=== PATIENT | female | born 1945 | race Caucasian/White ===

== ENCOUNTER → 2019-09-14 15:54 | Outpatient (CLI) | payer MEDICARE, OTHER, SELFPAY ==
[2019-09-11 08:38] VITALS: BMI 27.0
--- NOTE | 2019-09-14 16:01 | CT_ITS ---
History: Fall, humeral fracture. Injury. Examination and technique: CT of the left shoulder without IV contrast. Axial images obtained with multiplanar reformats and 3-D reconstructed images provided. Dose optimization was utilized. No comparisons. FINDINGS: Acute proximal humeral fracture, extending through the anatomic neck, and through the bases of the greater and lesser tuberosities. The shaft is mildly impacted and angulated laterally. The tuberosity fractures are minimally displaced. The humeral head maintains articulation with the bony glenoid. No other fracture is evident. Acromioclavicular alignment maintained. Moderate underlying degenerative changes, and calcific tendinopathy of the distal rotator cuff tendons. Left shoulder joint effusion. No hematoma or acute finding in the musculature. Implanted cardiac device left chest partially visible. CT/Extremity Upper without Contra IMPRESSION: Acute mildly displaced proximal humeral fracture. Electronically Signed: Maxx Song, at 4:28 EST Tel , Service support ,
--- NOTE | 2019-09-14 16:16 | CT_ITS ---
History: Fall, humeral fracture. Injury. Examination and technique: CT of the left shoulder without IV contrast. Axial images obtained with multiplanar reformats and 3-D reconstructed images provided. Dose optimization was utilized. No comparisons. FINDINGS: Acute proximal humeral fracture, extending through the anatomic neck, and through the bases of the greater and lesser tuberosities. The shaft is mildly impacted and angulated laterally. The tuberosity fractures are minimally displaced. The humeral head maintains articulation with the bony glenoid. No other fracture is evident. Acromioclavicular alignment maintained. Moderate underlying degenerative changes, and calcific tendinopathy of the distal rotator cuff tendons. Left shoulder joint effusion. No hematoma or acute finding in the musculature. Implanted cardiac device left chest partially visible. CT/Coronals Sag Multi Obl 3-D Rec IMPRESSION: Acute mildly displaced proximal humeral fracture. Electronically Signed: Maxx Song, at 4:28 EST Tel , Service support ,
== END ==
PROVIDERS: Family Provider Family Medicine; PCP Family Medicine; Referring Provider Orthopaedic Surgery; Visit Provider Orthopaedic Surgery
DX: S42.209A Unspecified fracture of upper end of unspecified humerus, initial encounter for closed fracture (principal); W19.XXXA Unspecified fall, initial encounter
CPT/HCPCS: 73200; 76377

== ENCOUNTER → 2019-09-18 12:40 | Outpatient (CLI) | payer MEDICARE, OTHER, SELFPAY ==
[2019-09-18 12:39] VITALS: BMI 27.0
--- NOTE | 2019-09-18 12:41 | RAD_ITS ---
STUDY: X-RAY - LEFT SHOULDER REASON FOR EXAM: Fracture. TECHNIQUE: 4 view(s) of the shoulder. COMPARISON: CT images 09/14/2019. FINDINGS: There is inferior subluxation of the humeral head. There is acromioclavicular arthrosis. Normal acromion. There is a mildly impacted fracture of the surgical neck of the humerus. There is calcific tendinitis. Normal visualized pulmonary apex. RAD/Shoulder min 2 Views IMPRESSION: Humeral neck fracture with inferior subluxation of the humeral head. Calcific tendinitis. Acromioclavicular arthrosis. Electronically Signed: Patrick Albarado MD at 13:55 EST Tel , Service support ,
== END ==
PROVIDERS: Family Provider Family Medicine; PCP Family Medicine; Referring Provider Orthopaedic Surgery; Visit Provider Orthopaedic Surgery
DX: S42.302A Unspecified fracture of shaft of humerus, left arm, initial encounter for closed fracture (principal); X58.XXXA Exposure to other specified factors, initial encounter; M19.012 Primary osteoarthritis, left shoulder; M75.32 Calcific tendinitis of left shoulder
CPT/HCPCS: 73030

== ENCOUNTER → 2019-09-24 10:21 | Outpatient (CLI) | payer MEDICARE, OTHER, SELFPAY ==
[2019-09-24 10:20] VITALS: BMI 27.0
--- NOTE | 2019-09-24 10:22 | RAD_ITS ---
STUDY: X-RAY - LEFT SHOULDER REASON FOR EXAM: Female, 74 years old. Fracture TECHNIQUE: 2 view(s) of the shoulder. COMPARISON: September 18, 2019 FINDINGS: There is caudal migration of the humeral head consistent with joint effusion. There is degenerative arthrosis of the acromioclavicular joint without inferior osseous spur formation. Normal acromion. There is demineralization of the humerus and visualized osseous structures. There is stable fracture of the surgical neck of the proximal humerus. There is a stable pacemaker device on the left. Normal visualized pulmonary apex. RAD/Shoulder min 2 Views IMPRESSION: Stable proximal humerus fracture. Electronically Signed: Freddie Zapata MD at 20:54 EST , Service support ,
== END ==
PROVIDERS: Family Provider Family Medicine; PCP Family Medicine; Referring Provider Physician Assistant; Visit Provider Physician Assistant
DX: S42.202A Unspecified fracture of upper end of left humerus, initial encounter for closed fracture (principal)
CPT/HCPCS: 73030

== ENCOUNTER → 2019-10-08 10:42 | Outpatient (CLI) | payer MEDICARE, OTHER, SELFPAY ==
[2019-10-08 10:37] VITALS: BMI 27.0
--- NOTE | 2019-10-08 10:45 | RAD_ITS ---
STUDY: X-RAY - LEFT SHOULDER REASON FOR EXAM: Follow-up fracture. TECHNIQUE: 3 view(s) of the shoulder. COMPARISON: Radiographs 02/22/2019. FINDINGS: There is inferior subluxation of the glenohumeral joint without interval change. There is acromioclavicular arthrosis. Normal acromion. There is a mildly impacted surgical neck fracture with early callus formation. There is calcific tendinitis as on the prior study. Normal visualized pulmonary apex. RAD/Shoulder min 2 Views IMPRESSION: Mildly impacted surgical neck fracture with early callus formation. Acromioclavicular arthrosis. Calcific tendinitis. Electronically Signed: Patrick Albarado MD at 16:00 EST Tel , Service support ,
== END ==
PROVIDERS: Family Provider Family Medicine; PCP Family Medicine; Referring Provider Physician Assistant; Visit Provider Physician Assistant
DX: S42.202A Unspecified fracture of upper end of left humerus, initial encounter for closed fracture (principal)
CPT/HCPCS: 73030

== ENCOUNTER → 2019-11-05 10:36 | Outpatient (CLI) | payer MEDICARE, OTHER, SELFPAY ==
[2019-11-05 10:22] VITALS: BMI 27.0
--- NOTE | 2019-11-05 10:37 | RAD_ITS ---
HISTORY: FRACTURE ADDITIONAL HISTORY: None provided. TECHNIQUE: Left shoulder 3 views Number of images including paperwork: 3 COMPARISON: 10/08/2019 FINDINGS: BONES: Some interval callus formation is noted about the mildly impacted fracture at the left proximal humerus. Fracture alignment is unchanged. Fracture line partially visible. JOINTS: No subluxation. Mild to moderate degenerative changes of the acromioclavicular and glenohumeral joints. SOFT TISSUES: No distinct foreign body. Faint calcification noted at the left rotator cuff insertion, unchanged and compatible with calcific tendinitis. Left sided pacemaker generator. Pacemaker leads partially visualized. RAD/Shoulder min 2 Views IMPRESSION: Left proximal humerus fracture with some interval healing. at 2256 Reported and signed by: Nimco Frye MD Electronically Signed: Nimco Frye MD at 22:56 EST Tel , Service support ,
== END ==
PROVIDERS: PCP Family Medicine; Referring Provider Physician Assistant; Visit Provider Physician Assistant
DX: S42.202A Unspecified fracture of upper end of left humerus, initial encounter for closed fracture (principal)
CPT/HCPCS: 73030

== ENCOUNTER 2020-09-22 10:19 | Inpatient (IN) | payer MEDICARE, OTHER, SELFPAY ==
[2019-11-05 10:22] VITALS: BMI 27.0
[2020-09-22] VITALS (10 sets, daily range): BP systolic 116–176; BP diastolic 62–90; PULSE 60–84; RESP 12–18; TEMP 36.4–36.9; O2SAT 98–100; BMI 29.6; BMI 28.6; BMI 28.7
--- NOTE | 2020-09-22 10:27 | NURSING ---
NO OLD EKGS
--- NOTE | 2020-09-22 11:03 | EKG12_ITS ---
Test Reason : CP Blood Pressure : / mmHG Vent. Rate : 078 BPM Atrial Rate : 078 BPM P-R Int : 206 ms QRS Dur : 180 ms QT Int : 450 ms P-R-T Axes : 000 -84 105 degrees QTc Int : 513 ms Electronic Ventricular Pacemaker Abnormal ECG Confirmed by PEARL METZ, PATRICA ([id number]), editorial writer ALISA VASQUEZ ([id number]) on 09/24/2020 12:54:16 PM Referred By: SALOMÓN Confirmed By:PATRICA KANG MD
--- NOTE | 2020-09-22 11:03 | RAD_ITS ---
STUDY: X-RAY CHEST REASON FOR EXAM: Female, 75 years old. PT C/O CHEST PRESSURE THAT HAS BEEN INTERMITTENT FOR SEVERAL DAYS. PT REPORTS IT BECOMES WORSE WITH HER ANXIETY. TECHNIQUE: Single AP portable view of the chest. COMPARISON: None. FINDINGS: EKG electrodes are seen. The lungs are clear and expanded. There is no demonstrated pleural abnormality. Normal size heart. A left-sided dual-chamber pacemaker is seen. Normal mediastinum and yudi. Normal visualized pulmonary arteries. Normal visualized aortic arch and descending thoracic aorta. There are mild degenerative changes of the visualized thoracic spine. Healed fracture of the surgical neck of the proximal left humerus. There is no demonstrated abnormality of the visualized soft tissue structures of the upper abdomen. RAD/Chest 1 View (Portable) IMPRESSION: No acute abnormality is seen. Electronically Signed: Cayden Alford, at 12:26 EST , Service support ,
--- NOTE | 2020-09-22 11:05 | ED.VIS.CHEST ---
History of Present Illness Chief Complaint: Chest Pain Informant: Patient Onset: Days - 4 Activity at onset: Rest Timing: Intermittent, Lasts - several - 30 minutes Quality: Heaviness Location: Substernal - and radiating into left periscapular area Current Severity: Gone Maximum Severity: Moderate Worsened By: Nothing. Not Worsened By: Breathing, Coughing Relieved By: Nothing Associated Symptoms: Cough. Negative for: Nausea, Vomiting, Diaphoresis, Dyspnea, Fever, Lightheadedness, Acid Reflux, Palpitations Narrative: Patient has been feeling weak, having chest pain off-and-on for the last several days, which is unusual for her. No history of heart disease that she knows of. No known contacts with COVID-19 infected persons. - Past Medical History (1) HTN (hypertension) Status: Chronic (2) GERD (gastroesophageal reflux disease) Status: Chronic (3) History of cardiac pacemaker Status: Chronic Past Medical History - Allergies and Home Meds Allergies/Adverse Reactions: Allergies amoxicillin Allergy (Intermediate, Verified 09/22/20 10:20) hives and vaginal itching. Primary Care Physician: Fredrick Alejandro MD [Primary Care Provider] - Doctors: cardiology at [facility] Surgical History: pacemaker implantation Smoking Status: Never smoker Review of Systems General: Reports: Chills. Denies: Fever, Sweats Eyes: Denies: Visual changes - bilaterally, Diplopia ENT: Denies: Bilateral ear pain, Rhinorrhea, Sore throat Cardiovascular: Reports: Chest pain. Denies: Palpitations Respiratory: Reports: Cough - mild. Denies: Dyspnea, Sputum, Dyspnea on exertion Gastrointestinal: Denies: Abdominal pain, Nausea, Vomiting, Diarrhea, Melena, Hematochezia Genitourinary: Denies: Dysuria, Hematuria, Frequency Musculoskeletal: Reports: Myalgias - intermittently, Back pain - when chest hurts. Denies: Neck pain, Swelling, Extremity Pain Skin: Denies: Rash, Wounds Neurological: Denies: Headache, Weakness, Numbness Physical Exam Vital Signs/Narrative: Vital Signs Temp Pulse Resp BP Pulse Ox 09/22/20 10:20 98.4 F 69 17 176/78 H 100 Inital Vital Signs reviewed: Yes General: Well nourished, Well developed, No Acute Distress Head: Normocephalic, Atraumatic Eyes: Perrl, EOMI ENT: Moist mucous membranes, No rhinorrhea Neck: Supple, Nontender, No lymphadenopathy, No JVD Cardiovascular: Regular rate, Regular rhythm, No murmurs. Negative for: Tachycardia, Bradycardia Respiratory: No distress, CTA bilaterally, Chest nontender Abdomen: Soft, Nontender, Nondistended, Normal bowel sounds Back: Nontender, Normal Inspection Extremities: Nontender, No edema. Negative for: Calf Tenderness Skin: Normal color, No rash, No Trauma Neurological: Alert, Oriented x3, Cranial nerves II-XII grossly intact, Normal Strength, Normal Sensation Psychological: Normal affect, Normal Mood Diagnostic/Tx/Re-eval Chest X-Ray - ED: 1 View, Read by ED Physician, No Acute Disease, No Infiltrates Laboratory Tests 09/22/20 09/22/20 Range/Units 10:25 10:25 WBC 3.0 L (4.4-11.0) K/mm3 RBC 5.24 (4.2-5.4) M/mm3 Hgb 15.3 H (12.0-15.0) g/dL Hct 44.9 (37-47) % MCV 85.7 (81-99) fL MCH 29.2 (27.0-32.0) pg MCHC 34.1 (32-36) g/dL RDW Std Deviation 39.7 (35.1-43.9) fl RDW Coeff of Tyron 12.8 (11.6-14.6) % Plt Count 202 (150-450) K/mm3 MPV 9.4 (6.2-12.0) fl Immature Gran % (Auto) 0.300 (0.0-0.9) % Neut % (Auto) 48.0 (47-70) % Lymph % (Auto) 35.9 (19-41) % [place] % (Auto) 14.1 H (0-10) % Eos % (Auto) 0.7 (0-5) % Baso % (Auto) 1.0 (0-1) % Absolute Neuts (auto) 1.5 L (2.0-7.7) X10^3/uL Absolute Lymphs (auto) 1.09 (0.83-4.51) X10^3/uL Nucleated RBC % 0 (0-5) % Sodium 136 (136-145) mmol/L Potassium 2.7 L* (3.5-5.1) mmol/L Chloride 98 (98-107) mmol/L Carbon Dioxide 33.0 H (21.0-32.0) mmol/L Anion Gap 5 (5-15) BUN 11 (7-18) mg/dL Creatinine 0.88 (0.55-1.02) mg/dL Estim Creat Clear Calc 40.90 ml/min Est GFR (MDRD) Af Amer 81 (>60) mL/min Est GFR (MDRD) Non-Af 67 (>60) mL/min BUN/Creatinine Ratio 12.5 (10-20) RATIO Glucose 108 H (74-106) mg/dL Calcium 9.5 (8.5-10.1) mg/dL Troponin I < 0.015 (<0.045) ng/mL - Rhythm Strip Rhythm Strip: paced Rate: 78 Ectopy: None - EKG Initial EKG Interpretation: No Acute Injury Pattern, Paced - AV sequential pace and capture Prior: No Prior - Medical Decision Making Patient's Covid test returned positive confirming her URI symptoms has due to Covid. Her EKG shows normal pacing capture, her troponin is negative, which is very low potassium level. Given her chest pain and Covid, I did a D-dimer which returned within normal limits when corrected for her age, making acute pulmonary embolus extremely unlikely given a low pretest probability for the history. Given her very low potassium, I did start her on treatment and plan is admission to observation for replacement and further evaluation. ED Disposition - Plan for ED Patient: Disposition: Acute Care [facility] Diagnosis: Chest pain, COVID-19, Hypokalemia Referrals: Fredrick Alejandro MD [Primary Care Provider] -
[2020-09-22] MEDS: Aspirin 81 MG TAB.CHEW 324 MG PO (11:23)
[2020-09-22 11:25] LABS: Absolute Lymphocyte Count 1.09 X10^3/uL (0.83-4.51); Absolute Neutrophil Count 1.5 X10^3/uL (2.0-7.7); Basophil# 0.03 X10^3/uL; Eosinophil# 0.02 X10^3/uL; Eosinophils% 0.7 % (0-5); Hematocrit 44.9 % (37-47); Hemoglobin 15.3 g/dL (12.0-15.0); Lymphocyte # 1.09 X10^3/ul (4.0); Lymphocyte % 35.9 % (19-41); Mean Corp Hgb Conc 34.1 g/dL (32-36); Mean Corpuscular Hgb 29.2 pg (27.0-32.0); Mean Corpuscular Volume 85.7 fL (81-99); Mean Platelet Vol. 9.4 fl (6.2-12.0); Monocyte# 0.43 X10^3/uL; Monocyte% 14.1 % (0-10); NRBC Flagged by Analyzer 0 % (0-5); Neutrophil # 1.46 X10^3/uL (2.7-7.7); Platelet Count 202 K/mm3 (150-450); RBC Distribution Width CV 12.8 % (11.6-14.6); RBC Distribution Width SD 39.7 fl (35.1-43.9); Red Blood Count 5.24 M/mm3 (4.2-5.4)
[2020-09-22 11:45] LABS: Anion Gap 5 (5-15); BUN 11 mg/dL (7-18); BUN/Creat Ratio 12.5 RATIO (10-20); Calcium,Total 9.5 mg/dL (8.5-10.1); Chloride 98 mmol/L (98-107); Creatinine, Serum 0.88 mg/dL (0.55-1.02); EST Glomerular Filtration Rate 67 mL/min (>60); Est Glom Filt Rate - Afr Amer 81 mL/min (>60); Glucose 108 mg/dL (74-106); Potassium 2.7 mmol/L (3.5-5.1); Sodium Level 136 mmol/L (136-145)
[2020-09-22 13:07] LABS: D-Dimer Quantitative (DVT/PE) 0.56 FEU/ug/m (0.27-0.49)
--- NOTE | 2020-09-22 13:49 | HP.PCM_ITS ---
Problem List (1) HTN (hypertension) Status: Chronic Qualifiers: Hypertension type: essential hypertension Qualified Code(s): I10 - Essential (primary) hypertension (2) GERD (gastroesophageal reflux disease) Status: Chronic Qualifiers: Esophagitis presence: esophagitis presence not specified Qualified Code(s): K21.9 - Gastro-esophageal reflux disease without esophagitis (3) History of cardiac pacemaker Status: Chronic (4) Chest pain Status: Acute Qualifiers: Chest pain type: unspecified Qualified Code(s): R07.9 - Chest pain, unspecified (5) COVID-19 Status: Acute (6) Hypokalemia Status: Acute (7) Hyperlipidemia Status: Chronic Qualifiers: Hyperlipidemia type: unspecified Qualified Code(s): E78.5 - Hyperlipidemia, unspecified History of Present Illness Date of Admission: 09/22/20 Chief Complaint: Chest pain - 2 days The patient is a 75 year old F with past medical history of hypertension, status post pacemaker who comes in with a 2-day history of substernal chest pain, that started at home, at rest radiates into her left scapular region this was associated with diaphoresis dizziness or palpitations. She denied any fever or runny nose or shortness of breath. Denied any history of heart disease. She had her pacemaker placed in [facility] 10 years ago. She admitted to some clear runny nose, occasional tickling in her throat with cough. Denied any fever or shortness of breath. She denied any sick contact. Vitals in the ED showed temperature of 90 8.4F, heart rate 69, blood pressure 176/78, respiratory 17, SPO2 100% on room air. WBC count was 3.0, hemoglobin 15.3, platelet count 202, D-dimer 0.56, sodium 136, potassium 2.7, chloride 98, bicarbonate 33, BUN 11, creatinine 0.88, glucose 108, magnesium 2.2, LFTs were unremarkable, troponins were negative, procalcitonin was 0.01. Her admitting chest x-ray showed no acute abnormality. EKG showed a paced rhythm. Past Medical History Past Medical History (Chronic Problems): Chronic Problems (Last Updated 09/11/19 @ 08:49 by Yesenia Mcintyre) HTN (hypertension) (Chronic) GERD (gastroesophageal reflux disease) (Chronic) History of cardiac pacemaker (Chronic) Hyperlipidemia (Chronic) Medical History: Medical History (Last Updated 09/11/19 @ 08:49 by Yesenia Mcintyre) Borderline diabetes R73.03 HTN (hypertension) I10 Hx of cardiac pacemaker Z95.0 Allergies amoxicillin Allergy (Intermediate, Verified 09/22/20 10:20) hives and vaginal itching. Home Medications: Ambulatory Orders Medication Instructions Recorded aspirin 81 mg chewable tablet 81 mg PO DAILY 09/11/19 hydralazine 25 mg tablet 25 mg PO BID #90 tab 09/11/19 hydrochlorothiazide 25 mg tablet 25 mg PO DAILY #30 tab 09/11/19 meloxicam 15 mg tablet 15 mg PO DAILY PRN PRN #30 tab 09/11/19 simvastatin 20 mg tablet 20 mg PO DAILY #30 tab 09/11/19 Amlodipine [Norvasc] 5 mg PO DAILY 09/22/20 Cholecalciferol (Vitamin D3) 1,000 unit PO DAILY 09/22/20 [Vitamin D3] Surgical History: cholecystectomy, hysterectomy, pacemaker implantation Psychiatric History: No pertinent psych hx IS MANAGER History: No pertinent IS MANAGER history Lives: Alone Smoking Status: Former smoker Tobacco Use: Non-smoker Alcohol: None Drugs: None - *Family History Maternal History Items: Heart Disease Paternal History Items: Unknown Review of Systems Constitutional: Reports: Weakness, Fatigue. Denies: Anorexia, Chills, Fever, Malaise, Weight Change Eyes: Denies: Blurred vision, Cataracts, Conjunctivae Inflammation, Pain, Redness, Vision Change HEENT: Denies: Difficulty Hearing, Difficulty Swallowing, Head Aches, Hearing Changes, Sinus Congestion, Sinus Drainage Cardiovascular: Reports: Chest Pain. Denies: Claudication, Orthopnea, Palpitations, Paroxysmal Noc. Dyspnea Respiratory: Denies: Cough, Hemoptysis, Shortness of Breath, Shortness of breath at rest, Shortness of breath upon exertion, Sputum production Gastrointestinal: Denies: Abdominal Pain, Constipation, Nausea, Vomiting Genitourinary: Denies: Dysuria Musculoskeletal: Denies: Joint Pain, Joint stiffness, Joint swelling, Joint Tenderness Skin: Denies: Pruritis, Rash, Wounds Neurological: Denies: Difficulty swallowing, Focal weakness, Numbness, Tingling Psychiatric: Denies: Anxiety, Depression, Homicidal Ideations, Suicidal Ideations Hematologic/ Lymphatic: Denies: Easy Bruising, Easy Bleeding VTE Information - Inpt Only VTE Present on Admission: No VTE Pharm Prophylaxis ordered?: Yes Patient Problems: Active and Suspected Problems (Last Updated 09/11/19 @ 08:49 by Yesenia Mcintyre) Chest pain (Acute) COVID-19 (Acute) Hypokalemia (Acute) - Physical Exam Vitals/I&O's: Vital Signs Temp Pulse Resp BP Pulse Ox 98.4 F 84 15 142/64 H 100 09/22/20 10:20 09/22/20 13:36 09/22/20 13:36 09/22/20 13:36 09/22/20 13:36 Oxygen Delivery Method Room Air Weight: 68.9 kg Body Mass Index (BMI) 29.6 General: Alert, Oriented x3, Cooperative, No apparent distress - Not on oxygen HEENT: Atraumatic, PERRLA, EOMI, Normocephalic Oral: Moist Mucosa Neck: Supple Lungs: Normal air movement Cardiovascular: Regular rate, Regular Rhythm, Normal S1, No murmurs Abdomen: Bowel Sounds Present, Soft, Non Tender Extremities: No edema Skin: No rashes Musculoskeletal: No Tenderness to Palpation of Joints or Extremities Lymphatic: No Cervical, Supraclavicular, or Inguinal Adenopathy Neurological: Cranial nerves II-XII grossly intact, Neuro grossly intact Psych/Mental Status: Normal Affect, Appropriate Microbiology Past 72 Hours 09/22/20 11:25 Mucosa - Nose SARS-CoV-2 Antigen (Rapid) - Final SARS-CoV-2 (COVID 19) Laboratory Results 09/22/20 10:25: WBC 3.0 L, RBC 5.24, Hgb 15.3 H, Hct 44.9, MCV 85.7, MCH 29.2, MCHC 34.1, RDW Std Deviation 39.7, RDW Coeff of Tyron 12.8, Plt Count 202, MPV 9.4, Immature Gran % (Auto) 0.300, Neut % (Auto) 48.0, Lymph % (Auto) 35.9, [place] % (Auto) 14.1 H, Eos % (Auto) 0.7, Baso % (Auto) 1.0, Absolute Neuts (auto) 1.5 L, Absolute Lymphs (auto) 1.09, Nucleated RBC % 0 09/22/20 10:25: Sodium 136, Potassium 2.7 L*, Chloride 98, Carbon Dioxide 33.0 H , Anion Gap 5, BUN 11, Creatinine 0.88, Estim Creat Clear Calc 40.90, Est GFR (MDRD) Af Amer 81, Est GFR (MDRD) Non-Af 67, BUN/Creatinine Ratio 12.5, Glucose 108 H, Calcium 9.5, Troponin I < 0.015 09/22/20 10:25: D-Dimer Quant (PE/DVT) 0.56 H* Assessment/Plan All Active Problems (Last Updated 09/11/19 @ 08:49 by Yesenia Mcintyre) Chest pain (Acute) COVID-19 (Acute) Hypokalemia (Acute) 1. Chest pain, typical, in a patient with risk factors No history of underlying previous CAD. History of pacemaker EKG showed no acute ST-T changes, showed paced rhythm. Troponins are negative Would hold off on ordering stress test in the light of possible COVID-19 infection Patient will likely need outpatient follow-up Continue on aspirin 81 mg p.o. daily, atorvastatin 2. Acute COVID-19 infection with a positive COVID-19 rapid antigen test Patient has minimal symptoms of a clear runny nose, occasional cough with sensation of fluid dripping behind her throat Procalcitonin 0.01. Denied any sick contacts Will order COVID-19 PCR to allow definite risk stratification especially for cardiac testing if need be 3. Hypokalemia secondary to hydrochlorothiazide use Will replace with oral potassium Hold hydrochlorothiazide Recheck in a.m. 4. Hypertension/hyperlipidemia, continue on amlodipine, hydralazine, simvastatin 5. DVT prophylaxis -Lovenox BID OBSV E&M: [id number] Initial observation care L3
--- NOTE | 2020-09-22 14:03 | NURSING ---
PCU CP, POSITIVE COVID PAINTSIL
[2020-09-22 14:30] LABS: AST(SGOT) 28 U/L (15-37); Alanine Aminotransfer ALT/SGPT 39 U/L (13-56); Albumin, Serum 4.2 g/dL (3.2-5.0); Alkaline Phosphatase 74 U/L (45-117); Globulin 4.2 g/dL (2.2-4.2); Magnesium 2.2 mg/dL (1.6-2.6); Protein, Total 8.4 g/dL (6.4-8.2)
--- NOTE | 2020-09-22 15:22 | EKG12_ITS ---
Test Reason : Blood Pressure : / mmHG Vent. Rate : 061 BPM Atrial Rate : 062 BPM P-R Int : 206 ms QRS Dur : 178 ms QT Int : 494 ms P-R-T Axes : 000 -80 100 degrees QTc Int : 497 ms AV dual-paced rhythm Abnormal ECG Confirmed by PEARL METZ, PATRICA ([id number]), book or script editor ALISA VASQUEZ ([id number]) on 09/24/2020 1:22:43 PM Referred By: GUERITA Confirmed By:PATRICA KANG MD
[2020-09-22 16:04] LABS: Procalcitonin < 0.01 ng/mL (0.00-0.09)
[2020-09-22] MEDS: dexAMETHasone 4 MG Tablet 6 MG PO (18:16)
[2020-09-22] MEDS: hydrALAZINE 25 MG Tablet PO (21:00)
[2020-09-22] MEDS: Enoxaparin 30 MG/0.3 ML Syringe SC (21:01)
[2020-09-22 23:12] LABS: Probe Check PASS; Specimen Processing Control PASS
[2020-09-23] VITALS (11 sets, daily range): BP systolic 125–135; BP diastolic 56–64; PULSE 60–65; RESP 17–18; TEMP 36.4–36.8; O2SAT 94–100
[2020-09-23 07:24] LABS: Absolute Lymphocyte Count 0.65 X10^3/uL (0.83-4.51); Absolute Neutrophil Count 2.4 X10^3/uL (2.0-7.7); Hematocrit 41.2 % (37-47); Hemoglobin 13.8 g/dL (12.0-15.0); Lymphocyte # 0.65 X10^3/ul (4.0); Mean Corp Hgb Conc 33.5 g/dL (32-36); Mean Corpuscular Hgb 28.6 pg (27.0-32.0); Mean Corpuscular Volume 85.3 fL (81-99); Mean Platelet Vol. 9.6 fl (6.2-12.0); Monocyte% 3.2 % (0-10); NRBC Flagged by Analyzer 0 % (0-5); Neutrophil # 2.35 X10^3/uL (2.7-7.7); Neutrophil % 75.8 % (47-70); Platelet Count 195 K/mm3 (150-450); RBC Distribution Width CV 12.6 % (11.6-14.6); Red Blood Count 4.83 M/mm3 (4.2-5.4); White Blood Count 3.1 K/mm3 (4.4-11.0)
[2020-09-23 08:00] LABS: ALB/GLOB Ratio 1.1 RATIO (0.9-2.4); AST(SGOT) 22 U/L (15-37); Alanine Aminotransfer ALT/SGPT 36 U/L (13-56); Albumin, Serum 3.7 g/dL (3.2-5.0); Alkaline Phosphatase 62 U/L (45-117); Anion Gap 7 (5-15); BUN 18 mg/dL (7-18); BUN/Creat Ratio 22.8 RATIO (10-20); Calcium,Total 9.2 mg/dL (8.5-10.1); Chloride 102 mmol/L (98-107); Creatinine, Serum 0.79 mg/dL (0.55-1.02); EST Glomerular Filtration Rate 76 mL/min (>60); Est Glom Filt Rate - Afr Amer 92 mL/min (>60); Estimated Creatinine Clearance 35.99 ml/min; Globulin 3.5 g/dL (2.2-4.2); Glucose 166 mg/dL (74-106); Potassium 4.3 mmol/L (3.5-5.1); Protein, Total 7.2 g/dL (6.4-8.2); Sodium Level 137 mmol/L (136-145)
[2020-09-23] MEDS: Aspirin 81 MG TAB.CHEW PO (10:15)
[2020-09-23] MEDS: amLODIPine 5 MG Tablet PO (10:15)
[2020-09-23] MEDS: hydrALAZINE 25 MG Tablet PO ×2 (10:15→21:22)
[2020-09-23] MEDS: dexAMETHasone 4 MG Tablet 6 MG PO (10:16)
[2020-09-23] MEDS: Enoxaparin 30 MG/0.3 ML Syringe SC ×2 (10:17→21:22)
--- NOTE | 2020-09-23 15:30 | CASEMGMT ---
RN CM CHEMICAL ENGINEERING PROFESSOR PADMAJA placed call to pt's room for initial transition planning/care coordination assessment. TIMMY GIANG introduced self and role at [facility]. Pt voices understanding and consents to assessment at this time. Pt is A/O at this time and answers all questions appropriately. Care providers, pharmacy, and demographics verified/updated at this time. PCP: Dr Alejandro Specialists: Dr Liao--pleater hand in [facility] Pharmacy: [facility] Retail Insurance: [facility], [facility] Prescription Benefit: Yes Living Will/HPOA: Has both LW and Healthcare POA, who is her son, Pedro Cook. LNOK: Son/DIL: Pedro and Janelle Cook Living Arrangements: lives with her daughter in one-story home w/a few steps to enter. Independent. Able to quarantine @ home. Daughter able to get groceries and supplies. They have masks, gloves, tube sizer operator, and disinfectants. Transportation: Pt states drives self and states no transportation concerns at this time. Daughter will take her home @ d/c. DME: Has a glucometer. Denies need for other DME. HHC: Denies need for HHC. Pt wishes to return home and states has no concerns with going home at time of discharge. CM to follow for any discharge planning/needs. Pt voices no concerns/needs at this time. Advised pt to ask for CM if any questions/concerns/needs arise. Voices understanding. PLAN: Home. Follow for any anti-coag @ discharge. Golden DE LA FUENTE RN, CM
--- NOTE | 2020-09-23 17:52 | CT_ITS ---
STUDY: CT CHEST WITH CONTRAST REASON FOR EXAM: Female, 75 years old. WEAKNESS,+ COVID,DIZZINESS,COUGH,ELEVATED D-dimer, diaphoresis, + COVID RADIATION DOSAGE (If Supplied By Facility): CTDIvol = ( 13.87 ) mGy, DLP = ( 635.70 ) mGycm TECHNIQUE: Transaxial imaging was performed following intravenous administration of IV 100mL Isovue-370. Multiplanar coronal and sagittal images were reformatted. Individualized dose optimization techniques were used for this CT. COMPARISON: CT of the left upper extremity dated 09/14/2019 FINDINGS: There is no focal consolidation. There is a partially calcified subpleural 2.3 mm nodule within the right upper lobe There are calcifications of the coronary arteries. Normal mediastinum. Normal hilar regions. Normal enhanced pulmonary arteries. There are scattered peripheral calcifications of the thoracic aorta consistent with atherosclerosis. There are multi-level degenerative changes of the thoracic spine. Limited images of the upper abdomen demonstrate too small to characterize low-attenuation focus within the dome of the liver. CT/Chest WITH Contrast IMPRESSION: No acute cardiopulmonary process. Atherosclerosis. Degenerative changes of the thoracic spine. Electronically Signed: Lora Gaona MD at 22:56 EST Tel , Service support ,
--- NOTE | 2020-09-23 17:53 | PN_ITS ---
Patient Problems: Active and Suspected Problems (Last Updated 09/11/19 @ 08:49 by Yesenia Mcintyre) Chest pain (Acute) COVID-19 (Acute) Hypokalemia (Acute) Subjective: Feels better, her chest pain has resolved denies any shortness of breath Vitals/I&O's: Vital Signs Temp Pulse Resp BP Pulse Ox 98.2 F 61 18 125/56 H 97 09/23/20 15:05 09/23/20 15:05 09/23/20 15:05 09/23/20 15:05 09/23/20 15:05 Oxygen Delivery Method Room Air Weight: 146 lb 11.2 oz Body Mass Index (BMI) 28.6 Intake and Output for Last 24 Hours 09/21/20 09/22/20 09/23/20 23:59 23:59 23:59 Intake Total 360 / 510 900 / 900 Output Total Balance 360 / 510 899 / 899 General: Alert, Oriented x3, Cooperative, No apparent distress HEENT: Atraumatic, PERRLA, EOMI, Normocephalic Oral: Moist Mucosa Neck: Supple, No JVD Lungs: Clear to auscultation, Normal air movement, No rhonchi, No wheeze, No rales Cardiovascular: Regular rate, Regular Rhythm, Normal S1, Normal S2, No murmurs Abdomen: Soft, Non Tender, Non-Distended, No Hepato-splenomegaly Extremities: No edema, Capillary Refill Less than 3 Seconds Skin: No rashes, No breakdown Neurological: Neuro grossly intact, Sensory exam intact to light touch and pain Psych/Mental Status: Normal Affect, Appropriate Microbiology Past 72 Hours 09/22/20 15:17 Mucosa - Nasopharyngeal Respiratory Panel (PCR) - Final 09/22/20 11:25 Mucosa - Nose SARS-CoV-2 Antigen (Rapid) - Final SARS-CoV-2 (COVID 19) Laboratory Results 09/22/20 17:44: Troponin I < 0.015 09/22/20 20:38: COVID-19 (JAYA) Positive 09/23/20 05:50: WBC 3.1 L, RBC 4.83, Hgb 13.8, Hct 41.2, MCV 85.3, MCH 28.6, MCHC 33.5, RDW Std Deviation 39.0, RDW Coeff of Tyron 12.6, Plt Count 195, MPV 9. 6, Immature Gran % (Auto) 0.000, Neut % (Auto) 75.8 H, Lymph % (Auto) 21.0, [place] % (Auto) 3.2, Eos % (Auto) 0.0, Baso % (Auto) 0.0, Absolute Neuts (auto) 2.4, Absolute Lymphs (auto) 0.65 L, Nucleated RBC % 0 09/23/20 05:50: Sodium 137, Potassium 4.3, Chloride 102, Carbon Dioxide 28.0, Anion Gap 7, BUN 18, Creatinine 0.79, Estim Creat Clear Calc 35.99, Est GFR (MDRD) Af Amer 92, Est GFR (MDRD) Non-Af 76, BUN/Creatinine Ratio 22.8 H, Glucose 166 H, Calcium 9.2, Total Bilirubin 0.60, AST 22, ALT 36, Alkaline Phosphatase 62, Total Protein 7.2, Albumin 3.7, Globulin 3.5, Albumin/Globulin Ratio 1.1 Current Medications Acetaminophen (Acetaminophen 325 Mg Tablet) 650 mg PO Q6H PRN PRN PRN Reason: Pain Score 1-10/Temp > 100.7 F Amlodipine Besylate (Amlodipine 5 Mg Tablet) 5 mg PO DAILY [facility] Last Admin: 09/23/20 10:15 Dose: 5 mg Documented by: Aspirin (Aspirin 81 Mg Tab.Chew) 81 mg PO DAILY [facility] Last Admin: 09/23/20 10:15 Dose: 81 mg Documented by: Atorvastatin Calcium (Atorvastatin Calcium 10 Mg Tablet) 10 mg PO QHS [facility] Cholecalciferol (Cholecalciferol (Vit D3) 1,000 Unit (25mcg)) 1,000 unit PO DAILY [facility] Last Admin: 09/23/20 10:15 Dose: 1,000 unit Documented by: Dexamethasone (Dexamethasone 4 Mg Tablet) 6 mg PO DAILY [facility] Last Admin: 09/23/20 10:16 Dose: 6 mg Documented by: Enoxaparin Sodium (Enoxaparin 30 Mg/0.3 Ml Syringe) 30 mg SC BID [facility] Last Admin: 09/23/20 10:17 Dose: 30 mg Documented by: Hydralazine HCl (Hydralazine 25 Mg Tablet) 25 mg PO BID [facility] Last Admin: 09/23/20 10:15 Dose: 25 mg Documented by: Iopamidol (Contrast Allergy Safety Check) 0 ml IV X1 JOSE Morphine Sulfate (Morphine 2 Mg/Ml Syringe) 2 mg IV Q3H PRN PRN PRN Reason: Pain Score 6-10 Nitroglycerin (Nitroglycerin (Inpatient Use) 0.4 Mg Tab.Subl) 0.4 mg SUBLINGUAL Q5M PRN PRN Reason: CARDIAC/CHEST PAIN Ondansetron HCl (Ondansetron 4 Mg/2 Ml Vial) 4 mg IV Q8H PRN PRN PRN Reason: NAUSEA/VOMITING Sodium Chloride (0.9% Saline Lock 10 Ml Syringe) 10 - 40 ml IV UD PRN PRN Reason: SALINE FLUSH STROKE Vital Signs/Narrative: Vital Signs Temp Pulse Resp BP Pulse Ox 09/23/20 15:05 98.2 F 61 18 125/56 H 97 09/23/20 15:00 61 Medical Necessity - Tobacco Use Smoking Status: Former smoker Tobacco Use: Non-smoker Assessment/Plan All Active Problems (Last Updated 09/11/19 @ 08:49 by Yesenia Mcintyre) Chest pain (Acute) COVID-19 (Acute) Hypokalemia (Acute) 1. Chest pain/HTN/HLD/hypokalemia -EKG is nonischemic and her troponins were negative -He did have a cardiac cath 2 years ago which was completely normal -We will obtain a CT scan of her chest given her chest pain that radiates into her back -We will hold off on echo or stress test secondary to Covid -Hypokalemia likely secondary to HCTZ use, will discontinue -Continue with Norvasc, hydralazine, simvastatin 2. Acute COVID-19 infection -Very minimal symptoms and not hypoxic -He said that she had chills about 3 days ago but that is gone -Both antigen and PCR were positive,, she will need to be quarantined on discharge for total of 10 days since onset of symptoms DVT: Lovenox Inpatient E&M: 73868 Subs Hosp L2
--- NOTE | 2020-09-23 19:35 | PCS.PANDOC ---
PANDEMIC DOCUMENTATION INITIATED: Date: 09/23/2020 Time: 0200
[2020-09-23] MEDS: Atorvastatin Calcium 10 MG Tablet PO (21:22)
[2020-09-24] VITALS (7 sets, daily range): BP systolic 132–142; BP diastolic 54–66; PULSE 60–61; RESP 16–18; TEMP 36.3–36.5; O2SAT 97–100
[2020-09-24 06:38] LABS: Absolute Neutrophil Count 6.4 X10^3/uL (2.0-7.7); Basophil# 0.01 X10^3/uL; Basophil% 0.1 % (0-1); Hematocrit 39.6 % (37-47); Hemoglobin 13.3 g/dL (12.0-15.0); Lymphocyte % 19.5 % (19-41); Mean Corp Hgb Conc 33.6 g/dL (32-36); Mean Corpuscular Hgb 28.7 pg (27.0-32.0); Mean Corpuscular Volume 85.3 fL (81-99); Mean Platelet Vol. 9.7 fl (6.2-12.0); Monocyte# 0.59 X10^3/uL; Monocyte% 6.8 % (0-10); NRBC Flagged by Analyzer 0 % (0-5); Neutrophil % 73.3 % (47-70); Platelet Count 236 K/mm3 (150-450); RBC Distribution Width CV 12.9 % (11.6-14.6); RBC Distribution Width SD 39.7 fl (35.1-43.9); Red Blood Count 4.64 M/mm3 (4.2-5.4); White Blood Count 8.7 K/mm3 (4.4-11.0)
[2020-09-24 07:11] LABS: Anion Gap 6 (5-15); BUN 25 mg/dL (7-18); BUN/Creat Ratio 36.2 RATIO (10-20); Calcium,Total 9.1 mg/dL (8.5-10.1); Chloride 102 mmol/L (98-107); Creatinine, Serum 0.69 mg/dL (0.55-1.02); EST Glomerular Filtration Rate 89 mL/min (>60); Est Glom Filt Rate - Afr Amer 107 mL/min (>60); Estimated Creatinine Clearance 35.99 ml/min; Glucose 131 mg/dL (74-106); Potassium 3.9 mmol/L (3.5-5.1); Sodium Level 135 mmol/L (136-145)
[2020-09-24] MEDS: hydrALAZINE 25 MG Tablet PO (10:23)
[2020-09-24] MEDS: dexAMETHasone 4 MG Tablet 6 MG PO (10:23)
[2020-09-24] MEDS: Aspirin 81 MG TAB.CHEW PO (10:24)
[2020-09-24] MEDS: amLODIPine 5 MG Tablet PO (10:24)
[2020-09-24] MEDS: Enoxaparin 30 MG/0.3 ML Syringe SC (10:24)
--- NOTE | 2020-09-24 13:10 | PCM.DC ---
- Discharge Diagnoses Current Active Problems: Current Active and Chronic Problems (Last Updated 09/11/19 @ 08:49 by Yesenia Mcintyre) HTN (hypertension) (Chronic) GERD (gastroesophageal reflux disease) (Chronic) History of cardiac pacemaker (Chronic) Chest pain (Acute) COVID-19 (Acute) Hypokalemia (Acute) Hyperlipidemia (Chronic) You will use the following diet at home:: Cardiac Your food should be the consistency of: Regular Your liquids should be the consistency of: Regular/Thin Discharge Activity: Return to Normal Activity Call your doctor if you observe: Fever of 101 or Higher, Shortness of breath, Dizziness, Fainting spells, Swelling in the ankles, Chest pain, Increased palpitations (irregular heartbeat) Additional Instructions: Recommend that you follow-up with your primary care physician in 3 to 5 days to monitor your blood pressure. Because when you presented to the hospital your potassium was very low your hydrochlorothiazide was discontinued. Your Norvasc/amlodipine was increased from 5 mg to 10 mg on discharge. Also because of your Covid diagnosis you are discharged on Decadron for 7 more days to complete 10-day course. And you should be quarantined for a total of 10 days following symptom onset as long as you have had 24 hours of no fever or oxygen use. Allergies/Adverse Reactions: Allergies amoxicillin Allergy (Intermediate, Verified 09/22/20 10:20) hives and vaginal itching. Medications to take at Discharge aspirin 81 mg chewable tablet 81 mg PO DAILY 09/11/19 hydralazine 25 mg tablet 25 mg PO BID #90 tab 09/11/19 meloxicam 15 mg tablet 15 mg PO DAILY PRN PRN #30 tab 09/11/19 simvastatin 20 mg tablet 20 mg PO DAILY #30 tab 09/11/19 Cholecalciferol (Vitamin D3) [Vitamin D3] 1,000 unit PO DAILY 09/22/20 Amlodipine [Norvasc] 10 mg PO DAILY #0 09/24/20 Dexamethasone [Decadron] 6 mg PO DAILY #21 tab 09/24/20 The following prescriptions were given: Dexamethasone [Decadron] 6 mg PO DAILY #21 tab Transmission Status: Pending to [facility] Primary Care Physician: Fredrick Alejandro MD [Primary Care Provider] - Please follow up with your Primary Care Physician in: 3-5 days Test Results: Test results from this visit will be discussed in further detail at your follow-up appointment, if applicable.
--- NOTE | 2020-09-24 13:39 | CASEMGMT ---
TIMMY GIANG NOTE: Pt being discharged. She does not qualify for home O2. Pulse ox 100% RA at rest and w/ambulation. Per Dr Head, pt does not need anti-coag @ d/c. Golden DE LA FUENTE RN CM
--- NOTE | 2020-09-24 22:15 | PCM.DC.SUM ---
Discharge Date and Diagnosis - Problem List Patient Problems: Active and Suspected Problems (Last Updated 09/11/19 @ 08:49 by Yesenia Mcintyre) Chest pain (Acute) COVID-19 (Acute) Hypokalemia (Acute) Date of Admission: 09/22/20 Date of Discharge: 09/24/20 - Primary Discharge Diagnosis Acute Problems: Active Problems (Last Updated 09/11/19 @ 08:49 by Yesenia Mcintyre) Chest pain (Acute) COVID-19 (Acute) Hypokalemia (Acute) - Secondary Discharge Diagnosis Chronic Problems: Chronic Problems (Last Updated 09/11/19 @ 08:49 by Yesenia Mcintyre) HTN (hypertension) (Chronic) GERD (gastroesophageal reflux disease) (Chronic) History of cardiac pacemaker (Chronic) Hyperlipidemia (Chronic) Hospital Course and Treatment Imaging Results: Clinical Impression(s) from Imaging Studies Chest X-Ray 09/22/20 11:03 IMPRESSION: No acute abnormality is seen. Electronically Signed: Cayden Alford at 12:26 EST , Service support , Chest CT 09/23/20 17:52 IMPRESSION: No acute cardiopulmonary process. Atherosclerosis. Degenerative changes of the thoracic spine. Electronically Signed: Lora Gaona MD at 22:56 EST Tel , Service support , Operations: None Procedures: None Summary of Care Provided: Per HPI: The patient is a 75 year old F with past medical history of hypertension, status post pacemaker who comes in with a 2-day history of substernal chest pain, that started at home, at rest radiates into her left scapular region this was associated with diaphoresis dizziness or palpitations. She denied any fever or runny nose or shortness of breath. Denied any history of heart disease. She had her pacemaker placed in [facility] 10 years ago. She admitted to some clear runny nose, occasional tickling in her throat with cough. Denied any fever or shortness of breath. She denied any sick contact. Vitals in the ED showed temperature of 90 8.4F, heart rate 69, blood pressure 176/78, respiratory 17, SPO2 100% on room air. WBC count was 3.0, hemoglobin 15.3, platelet count 202, D-dimer 0.56, sodium 136, potassium 2.7, chloride 98, bicarbonate 33, BUN 11, creatinine 0.88, glucose 108, magnesium 2.2, LFTs were unremarkable, troponins were negative, procalcitonin was 0.01. Her admitting chest x-ray showed no acute abnormality. EKG showed a paced rhythm. Hospital Course: 1. Chest pain/HTN/HLD/hypokalemia -EKG is nonischemic and her troponins were negative -He did have a cardiac cath 2 years ago which was completely normal -We will obtain a CT scan of her chest given her chest pain that radiates into her back, the CT scan was negative -We will hold off on echo or stress test secondary to Covid -Hypokalemia likely secondary to HCTZ use, will discontinue -Continue with Norvasc, hydralazine, simvastatin -I discussed with her the plan for discharge today since her troponins remain negative, her chest pain was unremarkable and her CT scan was normal. She continued to remain on room air so she expressed understanding of the risk and benefits of discharge, and wanted to go home today. Because she was started on Decadron on admission for her positive Covid test this was continued on discharge to complete 10 days. Also because her hydrochlorothiazide was discontinued secondary to her hypokalemia her Norvasc was increased from 5 mg to 10 mg. This was explained to her and she will need to follow-up with her PCP in 3 to 5 days for further evaluation. 2. Acute COVID-19 infection -Very minimal symptoms and not hypoxic -He said that she had chills about 3 days ago but that is gone -Both antigen and PCR were positive,, she will need to be quarantined on discharge for total of 10 days since onset of symptoms Patient Problems: Active and Suspected Problems (Last Updated 09/11/19 @ 08:49 by Yesenia Mcintyre) Chest pain (Acute) COVID-19 (Acute) Hypokalemia (Acute) - Physical Exam Vitals/I&O's: Vital Signs Temp Pulse Resp BP Pulse Ox 97.4 F L 61 16 142/54 H 97 09/24/20 13:53 09/24/20 13:53 09/24/20 13:53 09/24/20 13:53 09/24/20 13:53 Oxygen Delivery Method Room Air Weight: 146 lb 11.2 oz Body Mass Index (BMI) 28.6 Intake and Output for Last 24 Hours 09/22/20 09/23/20 09/24/20 23:59 23:59 23:59 Intake Total 360 / 510 1050 / 1050 340 / 340 Output Total Balance 360 / 510 1049 / 1049 340 / 340 General: Alert, Oriented x3, Cooperative, No apparent distress HEENT: Atraumatic, PERRLA, EOMI, Normocephalic Oral: Moist Mucosa Neck: Supple, No JVD Lungs: Clear to auscultation, Normal air movement, No rhonchi, No wheeze, No rales Cardiovascular: Regular rate, Regular Rhythm, Normal S1, Normal S2, No murmurs Abdomen: Soft, Non Tender, Non-Distended, No Hepato-splenomegaly Extremities: No edema, Capillary Refill Less than 3 Seconds Skin: No rashes, No breakdown Neurological: Neuro grossly intact, Sensory exam intact to light touch and pain Psych/Mental Status: Normal Affect, Appropriate Microbiology Past 72 Hours 09/22/20 15:17 Mucosa - Nasopharyngeal Respiratory Panel (PCR) - Final 09/22/20 11:25 Mucosa - Nose SARS-CoV-2 Antigen (Rapid) - Final SARS-CoV-2 (COVID 19) Laboratory Results 09/24/20 05:44: WBC 8.7, RBC 4.64, Hgb 13.3, Hct 39.6, MCV 85.3, MCH 28.7, MCHC 33.6, RDW Std Deviation 39.7, RDW Coeff of Tyron 12.9, Plt Count 236, MPV 9.7, Immature Gran % (Auto) 0.300, Neut % (Auto) 73.3 H, Lymph % (Auto) 19.5, [place] % (Auto) 6.8, Eos % (Auto) 0.0, Baso % (Auto) 0.1, Absolute Neuts (auto) 6.4, Absolute Lymphs (auto) 1.70, Nucleated RBC % 0 09/24/20 05:44: Sodium 135 L, Potassium 3.9, Chloride 102, Carbon Dioxide 27.0, Anion Gap 6, BUN 25 H, Creatinine 0.69, Estim Creat Clear Calc 35.99, Est GFR (MDRD) Af Amer 107, Est GFR (MDRD) Non-Af 89, BUN/Creatinine Ratio 36.2 H, Glucose 131 H, Calcium 9.1 Discharge Activity: Return to Normal Activity Call your doctor if you observe: Fever of 101 or Higher, Shortness of breath, Dizziness, Fainting spells, Swelling in the ankles, Chest pain, Increased palpitations (irregular heartbeat) Home Medications: Medications to take at Discharge aspirin 81 mg chewable tablet 81 mg PO DAILY 09/11/19 hydralazine 25 mg tablet 25 mg PO BID #90 tab 09/11/19 meloxicam 15 mg tablet 15 mg PO DAILY PRN PRN #30 tab 09/11/19 simvastatin 20 mg tablet 20 mg PO DAILY #30 tab 09/11/19 Cholecalciferol (Vitamin D3) [Vitamin D3] 1,000 unit PO DAILY 09/22/20 Amlodipine [Norvasc] 10 mg PO DAILY #0 09/24/20 Dexamethasone [Decadron] 6 mg PO DAILY #21 tab 09/24/20 Following Prescriptions Were Given to Patient: Dexamethasone [Decadron] 6 mg PO DAILY #21 tab Transmission Status: Received by [facility] Primary Care Physician: Fredrick Alejandro MD [Primary Care Provider] - Please follow up with your Primary Care Physician in: 3-5 days Please Follow Up With: Fredrick Alejandro MD Please Follow Up With: Faraz Izaguirre MD Disposition: Home Minutes spent on discharge:: 35 Patient Condition:: Stable Medical Necessity - Tobacco Use Smoking Status: Former smoker Tobacco Use: Non-smoker Meaningful Use Info Meaningful Use Diagnoses (Choose all that apply): None applicable Inpatient E&M: [id number] Disch Hosp
== END 2020-09-24 15:15 | disposition home or self-care (01) | DRG 179 ==
LOC: ED 12:23 → PCU 13:58
PROVIDERS: Admitting Provider Internal Medicine; Emergency Provider Emergency Medicine; PCP Family Medicine; Visit Provider Family Medicine
DX: U07.1 COVID-19 (principal); R07.89 Other chest pain; E87.6 Hypokalemia; I10 Essential (primary) hypertension; K21.9 Gastro-esophageal reflux disease without esophagitis; E78.5 Hyperlipidemia, unspecified; Z95.0 Presence of cardiac pacemaker; R73.03 Prediabetes; Z87.891 Personal history of nicotine dependence; T50.2X5A Adverse effect of carbonic-anhydrase inhibitors, benzothiadiazides and other diuretics, initial encounter
CPT/HCPCS: 36415; 71045; 71260; 80048; 80053; 80076; 83735; 84145; 84484; 85025; 85379; 87426; 87633; 87635; 93005; 97802; 99285; A4216; U0002